=== PATIENT | female | born 1955 | race Caucasian/White ===

== ENCOUNTER 2019-02-18 08:39 | Day surgery (SDC) | payer BC ==
[~2019-02-18 08:39] MED LIST: CEFAZOLIN 2 Gram 2 GM/50 ML BAG IVPB ONE; CELECOXIB 100 MG CAPSULE PO ONE; FAMOTIDINE 20MG TABLET PO ONE; MECLIZINE 25 MG TABLET PO ONE; METOCLOPRAMIDE 10 MG TABLET PO ONE; VANCOMYCIN 1GM/200ML PREMIX 1 GM/200 ML PIGGYBACK IVPB ONE
[2019-02-18] MEDS ORDERED: PROPOFOL 10 MG/ML VIAL IV ONE (08:40)
[2019-02-18] MEDS ORDERED: *PACU ONLY* KETAMINE HCL 10 MG/ML (20ML) VIAL IV ONE (08:40)
[2019-02-18] MEDS ORDERED: ACETAMINOPHEN 1,000 MG/100 ML BTL IV ONE (08:40)
[2019-02-18] MEDS ORDERED: ROPIVACAINE HCL (NAROPIN) /PF 5MG/ML 20ML VIAL IV ONE (08:40)
[2019-02-18] MEDS ORDERED: DEXAMETHASONE 4 MG/ML 1ML VIAL IVP ONE (08:40)
[2019-02-18] MEDS ORDERED: GLYCOPYRROLATE 0.2 MG/ML ML IV ONE (08:40)
[2019-02-18] MEDS ORDERED: KETOROLAC 30 MG/ML VIAL IVP ONE (08:40)
[2019-02-18] MEDS ORDERED: LIDOCAINE 2% MDV (20MG/ML) 20ML VIAL IV ONE (08:40)
[2019-02-18] MEDS ORDERED: ONDANSETRON HCL IV 4 MG/2 ML VIAL IVP ONE ×2 (08:40→13:29)
[2019-02-18] MEDS ORDERED: MIDAZOLAM HCL 2MG/2ML VIAL IV ONE (08:40)
[2019-02-18] MEDS ORDERED: MAGNESIUM SULFATE 8 MEQ(1GM)/2ML VIAL IV ONE (08:40)
[2019-02-18] MEDS ORDERED: FAMOTIDINE 20MG TABLET PO ONE (09:15)
[2019-02-18 09:29] LABS: ABO GROUP B; ANTIBODY SCREEN NEGATIVE (NEGATIVE); RH TYPE POSITIVE
[2019-02-18] MEDS ORDERED: RINGERS SOLUTION,LACTATED 1,000 ML IV ONE ×3 (09:45→12:35)
[2019-02-18] MEDS ORDERED: BUPIVACAINE 0.5% W/EPI MPF 30 ML VIAL SQ ONE (11:35)
[2019-02-18] MEDS ORDERED: TRANEXAMIC ACID 1,000 MG/10 ML ML IV ONE (11:36)
[2019-02-18] MEDS ORDERED: TRANEXAMIC ACID 1,000 MG/10 ML ML IU ONE (11:36)
[2019-02-18] MEDS ORDERED: ZOLPIDEM TARTRATE 5 MG TABLET PO PRN (12:37)
[2019-02-18] MEDS ORDERED: NALOXONE 0.4 MG/1 ML VIAL IVP PRN (12:37)
[2019-02-18] MEDS ORDERED: BISACODYL 10 MG SUPP RC PRN (12:37)
[2019-02-18] MEDS ORDERED: ONDANSETRON HCL IV 4 MG/2 ML VIAL IVP PRN (12:37)
[2019-02-18] MEDS ORDERED: DIPHENHYDRAMINE HCL 25 MG CAPSULE PO PRN (12:37)
[2019-02-18] MEDS ORDERED: ACETAMINOPHEN 325 MG TAB PO PRN (12:37)
[2019-02-18] MEDS ORDERED: AL HYDROX/MAG HYDROX 30ML UD PO PRN (12:37)
[2019-02-18] MEDS ORDERED: MAGNESIUM HYDROXIDE 30 ML UDC PO PRN (12:37)
[2019-02-18] MEDS ORDERED: KETOROLAC 30 MG/ML VIAL IVP PRN (12:37)
[2019-02-18] MEDS ORDERED: MEPERIDINE 50 MG/1 ML VIAL PO PRN (14:18)
[2019-02-18] MEDS ORDERED: TRAMADOL HCL 50 MG TABLET PO PRN (14:18)
--- NOTE | 2019-02-18 16:14 | Rehab Evaluation ---
Patient Information - Patient Information Diagnosis: L knee DJD Ordered Treatment: PT Evaluate and Treat Status: Initial Evaluation Surgery: Yes (L TKA) Date of Surgery: 02/18/19 Past Medical/Surgical Hx: PAST MEDICAL/SURGICAL HISTORY Surgery to Affected Area? No Recent Surgery? Past Surgical History 4 CARDIAC STENTS 2016 2 RTC REPAIRS LEFT 1 RTC REPAIR RIGHT BILAT CTR C SCOPES EGDS LITHOTRIPSY PMH - Respiratory Hx Respiratory Disorders Yes Hx Bronchitis Yes: IN THE PAST PMH - Cardiovascular Hx Cardiovascular Disorders Yes Hx Abnormal EKG Yes Hx Cardiac Catheterization Yes Hx Heart Attack No Hx Hypertension Yes: CONTROLLED WITH MEDS RUNS A LITTLE LOW Hx Coronary Artery Disease Yes Hx Coronary Stent Yes Hx Heart Murmur Yes Exercise Tolerance Fair PMH - Neuro Hx Neurological Disorders Yes Hx Dizziness Yes: AT TIMES WHEN SHE GETS UP TO FAST Hx Headaches Yes: OCCASS PMH - GI Hx Gastrointestinal Disorders Yes Hx Gastroesophageal Reflux Yes Comment: HX GASTRITIS PMH - Hx Genitourinary Disorders Yes Hx Age of Menopause 54 Hx Bladder Problem Yes: PT COMPLAINS OF FREQUENT URINATION ONSET Hx Kidney Stones Yes: HX OF LITHOTRIPSY 01-08-19 Hx Urinary Tract Infection Yes: FREQUENT PMH - Endocrine Hx Endocrine Disorders No Hx Diabetes No Hx Thyroid Disease No PMH - Musculoskeletal Hx Musculoskeletal Disorders Yes Hx Arthritis Yes: KNEES SPINE PMH - Psych Hx Psychiatric Problems Yes Hx Anxiety Yes: A LITTLE ANXIOUS ABOUT SURGERY PMH - Hematology/Oncology Hx Hematology/Oncology Yes Disorders Hx Blood Transfusion Reaction No Premorbid Status: Detail (The patient was independent with all mobility) Social History: Detail (The patient lives with spouse in a two story house with 3 steps a porch and another step at the enterance. The patient will initially be on first floor however bed room is upstairs. The bathroom is equipped with a tub/shower combination, tub stool, standard height toilet. There are no grab bars in the bathroom however [facility].) Precautions: [place], Fall, Other (WBAT on the L LE) - Time With Patient Treatment Procedures: Detail (PT Eval , low complexity) Subjective Information - Subjective Information Per Patient (The patient had complaints of level 3 L knee pain.) Objective Data - Mental Status Patient Orientation: Oriented x3 - ROM Not within normal limits (The L knee is limited s/p surgery. All other AROM is WNL.) - Strength/Tone Not within normal limits (The patient's LE strength was not tested but was WFL.) - Bed Mobility Independent (The patient was independent with supine to and from sit transfer.) - Transfers Independent (The patient was independent with sit to and from stand transfer.) - Balance Balance Sitting: Good Balance Standing: Good - Sensation Intact - Gait Detail (The patient ambulated with front wheeled walker WBAT on the L LE with supervision for safety a distance of 125 feet x 1.) Therapy Assessment - Therapy Assessment Detail (The patient was independent with bed mobility and transfers. The patient should complete PT inpatient goals in one to two visits.) Problem List - Problem List Physical Therapy Problem List: Detail (Decreased L knee AROM and L LE strength s/p surgery.) Goals - Goals Physical Therapy Goals: 1) The patient will be independent with TKA HEP. 2) The patient will ambulate on stairs with supervision for safety using proper technique. Prognosis - Prognosis Good Plan - Plan Physical Therapy Plan: PT 1-2 sessions for gait training on stairs and instruction in HEP.
[2019-02-18] MEDS: HYDROMORPHONE HCL 2 MG/ML VIAL IM PRN (17:58)
[2019-02-18] MEDS: CEFAZOLIN 2 Gram 2 GM/50 ML BAG IVPB SCH (18:07)
[2019-02-18] MEDS: POTASSIUM CHLORIDE/D5-0.9%NACL 20 MEQ/1,000 ML BAG IV SCH (18:08)
[2019-02-18] MEDS: DOCUSATE SODIUM 100 MG CAPSULE PO SCH (21:16)
[2019-02-18] MEDS: METOPROLOL TART 25 MG TABLET PO SCH (21:16)
[2019-02-18] MEDS: SULFAMETHOXAZOLE PO SCH (21:17)
[2019-02-18] MEDS: TRIMETHOPRIM PO SCH (21:17)
[2019-02-18] MEDS ORDERED: ZOLPIDEM TARTRATE 5 MG TABLET PO SCH (22:00)
[2019-02-19] MEDS: TRAMADOL HCL 50 MG TABLET PO PRN ×3 (03:56→16:56)
[2019-02-19] MEDS: CEFAZOLIN 2 Gram 2 GM/50 ML BAG IVPB SCH ×2 (05:04→11:00)
[2019-02-19 06:51] LABS: HEMATOCRIT 35.8 % (35.0-47.0); HEMOGLOBIN 11.3 gm/dl (11.6-16.0)
[2019-02-19] MEDS ORDERED: PANTOPRAZOLE SODIUM 40 MG TABLET PO SCH (07:00)
[2019-02-19 07:08] LABS: BLOOD UREA NITROGEN 14 mg/dL (8-23); CREATININE 0.8 mg/dL (0.5-0.9); EST GLOMERULAR FILTRATION RATE > 60 mL/min; GLUCOSE,RANDOM 78 mg/dL (74-109)
[2019-02-19] MEDS: HYDROMORPHONE HCL 2 MG/ML VIAL IM PRN (07:28)
[2019-02-19] MEDS: DOCUSATE SODIUM 100 MG CAPSULE PO SCH (09:49)
[2019-02-19] MEDS: METOPROLOL TART 25 MG TABLET PO SCH (09:50)
[2019-02-19] MEDS: TRIMETHOPRIM PO SCH (09:51)
[2019-02-19] MEDS: SULFAMETHOXAZOLE PO SCH (09:51)
[2019-02-19] MEDS: POTASSIUM CHLORIDE/D5-0.9%NACL 20 MEQ/1,000 ML BAG IV SCH ×3 (09:52→14:36)
[2019-02-19] MEDS ORDERED: ASPIRIN 81 MG TABEC PO SCH (10:00)
[2019-02-19] MEDS ORDERED: RIVAROXABAN 10 MG TABLET PO SCH (10:00)
[2019-02-19] MEDS ORDERED: FERROUS SULFATE 325 MG TAB PO SCH (10:00)
[2019-02-19] MEDS ORDERED: LOSARTAN POTASSIUM 25 MG TABLET PO SCH (10:00)
--- NOTE | 2019-02-19 10:50 | Operative Note ---
DATE OF SURGERY: 02/18/2019 PREOPERATIVE DIAGNOSIS: End-stage arthrosis of the left knee. POSTOPERATIVE DIAGNOSIS: End-stage arthrosis of the left knee. OPERATION: Cemented left total knee arthroplasty using Patel [employer]hew Mi II components with a size 4 Oxinium femur, a size 3 stemmed tibia baseplate, a 9 mm lipped highly crosslinked tibial insert, and a 32 mm all-plastic patella. STAFF SURGEON: Hollis Carbajal MD SHIPPING SUPPORT CLERK: Jovani Remedios Babb ANESTHESIA: Spinal. PREPARATION: Chloraprep. INDIVIDUAL CONSIDERATIONS: None. PROCEDURE: The patient was taken to the operating room, placed supine on the operating room table. She had a successful induction of a spinal anesthetic. The left lower extremity was prepped and draped in the usual fashion. The limb was elevated and tourniquet was inflated to 250 mmHg. The patient had a midline approach to the knee. Sharp dissection carried down through skin and subcutaneous tissue. Small veins were coagulated with a Bovie. A medial arthrotomy was performed. The patella was everted and the knee was flexed. The patient had exposed bone in all 3 compartments. Fat pad was resected, ACL was sacrificed, and provisional anterior meniscectomies were performed. The capsule was released from the medial proximal tibia. The initial femoral boat pilot hole was then made freehand. The intramedullary femoral cutting jig was placed. It was cut in 7.0 degrees of valgus and adjusted for rotation and secured with pins for a 10 mm resection. The initial transverse cut was then made. The skin guide was placed in the anterior and posterior boat pilot holes. It was found that a size 4 would be appropriate. The anterior and posterior cuts followed by chamfer cuts were made. Osteophytes removed, and a size 4 trial was placed and found to fit well. The tibia was brought forward, and the remainder of the meniscal remnants removed with a Bovie. The extraarticular tibial cutting jig was placed. It was cut in neutral with a 3-degree AP slope. It was set for a 9 mm resection keyed off the high lateral side and secured with pins. When cutting the tibia, care was taken to preserve the PCL insertion on the tibia. Large osteophytes were removed medially, and I could fit a size 3 baseplate. It was adjusted for rotation and secured with pins. With a 9 mm trial and femoral trial, there was excellent motion and stability. Ligamentous balance and rotation alignment were thought to be normal. Femoral boat pilot holes were impacted and tri-flange tibial stamp was impacted, and these trial components were removed. The patient had a marginal patella but by compensating for bone loss, I was able to do just a very gentle cut and I preserved about 12-13 mm of bone. I fit a 32 patella, and the 3 boat pilot holes were drilled. It was found again that a 32 would be appropriate. The tourniquet was let down briefly to get bleeders posteriorly and then placed back up again. The knee was then copiously irrigated out with pulsatile Betadine and saline to remove any visual or palpable debris. Bony surfaces were then dried. A size 3 stemmed tibia baseplate was cemented into place followed by impaction of the 9 mm lipped tibial insert followed by cementing in the size 4 Oxinium femur followed by cementing in the 32 mm all- plastic patella. The implant surfaces were compressed, excess cement was removed. After the cement had set, there was excellent motion and stability. Ligamentous balance, rotation alignment, and patellofemoral tracking were normal. No lateral release was required for tracking. Tourniquet was let down. Hemostasis was obtained with a Bovie. After irrigation, the capsule was closed with a running #2 quill. Skin and subcu were infiltrated with 30 mL of 0.5% Marcaine with epinephrine. The subcu was closed in layers with running 0 quill, skin was closed with ofelia. Then 1 g of tranexamic acid was mixed with 30 mL of saline and injected into the knee through a sterile 18-gauge needle, and a sterile bulky compressive ELHAM-type dressing was applied. The patient tolerated the procedure well. Needle and sponge counts were correct. Estimated blood loss was minimal, and she was taken back to recovery in good condition. There were no complications. ALEXEY
--- NOTE | 2019-02-19 11:15 | Rehab Evaluation ---
Patient Information - Patient Information Diagnosis: L knee DJD Ordered Treatment: OT Evaluate and Treat Status: Initial Evaluation Surgery: Yes (L TKA) Date of Surgery: 02/18/19 Past Medical/Surgical Hx: PAST MEDICAL/SURGICAL HISTORY Surgery to Affected Area? No Recent Surgery? Past Surgical History 4 CARDIAC STENTS 2016 2 RTC REPAIRS LEFT 1 RTC REPAIR RIGHT BILAT CTR C SCOPES EGDS LITHOTRIPSY PMH - Respiratory Hx Respiratory Disorders Yes Hx Bronchitis Yes: IN THE PAST PMH - Cardiovascular Hx Cardiovascular Disorders Yes Hx Abnormal EKG Yes Hx Cardiac Catheterization Yes Hx Heart Attack No Hx Hypertension Yes: CONTROLLED WITH MEDS RUNS A LITTLE LOW Hx Coronary Artery Disease Yes Hx Coronary Stent Yes Hx Heart Murmur Yes Exercise Tolerance Fair PMH - Neuro Hx Neurological Disorders Yes Hx Dizziness Yes: AT TIMES WHEN SHE GETS UP TO FAST Hx Headaches Yes: OCCASS PMH - GI Hx Gastrointestinal Disorders Yes Hx Gastroesophageal Reflux Yes Comment: HX GASTRITIS PMH - Hx Genitourinary Disorders Yes Hx Age of Menopause 54 Hx Bladder Problem Yes: PT COMPLAINS OF FREQUENT URINATION ONSET Hx Kidney Stones Yes: HX OF LITHOTRIPSY 01-08-19 Hx Urinary Tract Infection Yes: FREQUENT PMH - Endocrine Hx Endocrine Disorders No Hx Diabetes No Hx Thyroid Disease No PMH - Musculoskeletal Hx Musculoskeletal Disorders Yes Hx Arthritis Yes: KNEES SPINE PMH - Psych Hx Psychiatric Problems Yes Hx Anxiety Yes: A LITTLE ANXIOUS ABOUT SURGERY PMH - Hematology/Oncology Hx Hematology/Oncology Yes Disorders Hx Blood Transfusion Reaction No Premorbid Status: Detail (The patient was independent with all mobility, meal prep, laundry and home mgmt tasks prior to surgery.) Social History: Detail (The patient lives with spouse in a two story house with 3 steps a porch and another step at the entrance. The patient will initially be staying on the first floor however bed room is upstairs. The bathroom is equipped with a tub/shower combination, tub stool and grab bar and a standard height toilet without a grab bar. She has a 2 wheeled walker and a straight cane.) Precautions: [place], Fall, Other (WBAT on the L LE) - Time With Patient Total Time Spent With Patient (Min): 45 Treatment Procedures: Detail (OT eval low complexity) Subjective Information - Subjective Information Per Patient Objective Data - Pain Pain Present: Yes (-06/02) - Mental Status Patient Orientation: Oriented x3 - Visual Perception Appears within normal limits for therapeutic activities - ROM Within normal limits (Pt reports bon shoulder problems due to rotator cuff injuries/surgeries but she is able to use bon UEs functionally.) - Strength/Tone Within normal limits (Pt reports bon shoulder problems due to rotator cuff injuries/surgeries but she is able to use bon UEs functionally.) - Coordination Appears within normal limits for therapeutic activities - Bed Mobility Independent (Ind with supine to sit) - Transfers Independent (Ind with sit to stand from EOB and toilet heights.) - Balance Balance Sitting: Good Balance Standing: Good - Sensation Intact - Gait Detail (Pt ambulating in room with 2 wheeled walker and SBA.) - ADL's/IADL's Detail (Pt educated and able to demonstrate learning of modified LE dressing techniques including doffing slipper socks and donning bashir sock (with assist), pants and tennis shoes. Reviewed kitchen, shower, laundry safety and modifications, pt verbalized understanding.) Therapy Assessment - Therapy Assessment Detail (Pt is Ind with modified LE dressing techniques.) Problem List - Problem List Physical Therapy Problem List: Detail (Decreased L knee AROM and L LE strength s/p surgery.) Occupational Therapy Problem List: Detail (No current IP OT problems identified.) Goals - Goals Physical Therapy Goals: 1) The patient will be independent with TKA HEP. 2) The patient will ambulate on stairs with supervision for safety using proper technique. Occupational Therapy Goals: No current IP OT goals identified. Prognosis - Prognosis Good Plan - Plan Physical Therapy Plan: PT 1-2 sessions for gait training on stairs and instruction in HEP. Occupational Therapy Plan: No further IP OT recommended. Thank you for this referral.
--- NOTE | 2019-02-19 11:23 | Physical Therapy Tx Note ---
Physical Therapy Tx Note - Treatment Note Tolerated: Good Total Time Spent With Patient: 35 Physical Therapy Tx Note: Detail (Patient was standing in bathroom upon KILN TESTER arrival. Patient ambulated 337 feet with wheeled walker CGA/SBA x1. Patient transferred stand to sit CGA x1. Patient performed the following exercises seated in chair x5-10 reps each: ankle pumps, quad sets, and heel slides. Patient transferred sit to and from stand CGA x1. Patient ambulated 50 feet with wheeled walker SBA x1. Patient ascended 3 steps, descended 2 steps with using walker and stairwell railing CGA x1. Patient transferred sit to and from stand CGA x1. Patient ambulated 5 feet with wheeled walker SBA x1. Patient performed the following exercises seated on edge of bed x5-10 reps each: SLR, hamstring sets, and glut squeezes. Patient tolerated treatment well. Patient displays good understanding of ambulation, HEP, and stair climbing. Patient was left seated on edge of bed with call light within reach. Patient discharged from inpatient PT at this time as all goals are met.) Physical Therapy Problem List: Detail (Decreased L knee AROM and L LE strength s/p surgery.) Physical Therapy Goals: 1) The patient will be independent with TKA HEP. Met. 2) The patient will ambulate on stairs with supervision for safety using proper technique. Met. Prognosis: Good Physical Therapy Plan: Patient discharged from inpatient PT at this time as all goals are met.
== END 2019-02-19 17:17 | disposition home health service (06) ==
LOC: SUR 08:39 → MEDSURG 14:05 → SUR 02-19 17:17
PROVIDERS: ATTEND Orthopaedic Surgery
DX: M17.12 Unilateral primary osteoarthritis, left knee (principal); I10 Essential (primary) hypertension; Z95.5 Presence of coronary angioplasty implant and graft
CPT/HCPCS: 27447; 01402; 64447; 85018; 85014; 80048; 86900; 86901; 86850; C1776; J1885; J2405; J3490; J1170 ×2; J0690 ×2; J2795; J3370; 76942; J3480; J7120